=== PATIENT | male | born 1995 | race Caucasian/White ===

== ENCOUNTER 2017-05-24 10:16 | Emergency (ER) | payer SELFPAY ==
--- NOTE | 2017-05-24 11:06 | RAD ---
RIGHT ANKLE 3 VIEWS: HISTORY: Right ankle pain. FINDINGS/IMPRESSION: The ankle mortise is maintained. No fracture, dislocation, or bony destruction is seen. POS: [facility]
[2017-05-24] MEDS ORDERED: HYDROcodone/Acetaminophen 10/325 mg Tablet ONE (11:23)
== END 2017-05-24 11:30 | disposition home or self-care (01) ==
LOC: ERS 10:16
DX: S93.401A Sprain of unspecified ligament of right ankle, initial encounter (principal); L02.415 Cutaneous abscess of right lower limb; W17.89XA Other fall from one level to another, initial encounter; Y93.51 Activity, roller skating (inline) and skateboarding